=== PATIENT | female | born 1990 | race African-American/Black ===

== ENCOUNTER 2017-10-11 19:29 | Emergency (ER) | payer OTHER ==
[~2017-10-11] VITALS: Ht 167.6 cm; Wt 95.5 kg
[2017-10-11] MEDS ORDERED: DEXAMETHASONE SOD PHOS 4 MG/ML 5 ML VIAL IVP ONE (22:00)
[2017-10-11] MEDS ORDERED: SODIUM CHLORIDE 0.9% 1,000 ML IV ONE (22:00)
[2017-10-11] MEDS ORDERED: VALPROATE SODIUM 500 MG in DEXTROSE 5%-WATER 50 ML IV ONE (22:00)
[2017-10-11] MEDS ORDERED: KETOROLAC TROMETHAMINE 30 MG/ML VIAL IVP ONE (22:00)
[2017-10-11] MEDS ORDERED: ONDANSETRON HCL 4 MG/2 ML VIAL IVP ONE (22:00)
[2017-10-11 22:55] LABS: ANION GAP 10 mmol/L (8-16); CALCIUM, TOTAL 8.6 mg/dL (8.8-10.5); CARBON DIOXIDE 25 mmol/L (22-29); CHLORIDE 104 mmol/L (98-107); CREATININE 0.81 mg/dL (0.60-1.30); GLOMERULAR FILTR. RATE CALC > 60 mL/min (>60); GLUCOSE,RANDOM 101 mg/dL (70-110); POTASSIUM 3.5 mmol/L (3.5-5.1); SODIUM SERUM 139 mmol/L (136-145); UREA NITROGEN, BLOOD 9 mg/dL (7-18)
[2017-10-11 23:01] LABS: ALANINE AMINOTRANSFERASE 17 U/L (12-78); ALBUMIN 3.5 g/dL (3.4-5.0); ALKALINE PHOSPHATASE 49 U/L (46-116); ASPARTATE AMINOTRANSFERASE 14 U/L (15-37); BILIRUBIN,TOTAL 0.3 mg/dL (0.1-1.0); TOTAL PROTEIN, SERUM 6.9 g/dL (6.4-8.2)
[2017-10-11 23:07] LABS: BASOPHILS # (AUTO) 0.04 K/uL (0.00-0.20); BASOPHILS % (AUTO) 0.7 % (0.0-2.0); EOSINOPHILS # (AUTO) 0.08 K/uL (0.00-0.70); EOSINOPHILS % (AUTO) 1.41 % (1.0-6.0); HEMATOCRIT 35.2 % (36-46); HEMOGLOBIN 11.7 g/dL (12.0-16.0); LYMPHOCYTES # (AUTO) 2.1 K/uL (1.0-4.8); LYMPHOCYTES % (AUTO) 39.2 % (22.0-44.0); MEAN CORPUSCULAR HEMOGLOBIN 27.2 pg (26.0-34.0); MEAN CORPUSCULAR HGB CONC 33.2 G/dL (31.0-37.0); MEAN CORPUSCULAR VOLUME 82 fL (80-100); MONOCYTES # (AUTO) 0.4 K/uL (0.1-1.0); MONOCYTES % (AUTO) 7.9 % (2.0-9.0); NEUTROPHILS # (AUTO) 2.7 K/uL (1.8-7.7); NEUTROPHILS % (AUTO) 50.8 % (40.0-70.0); PLATELET COUNT (AUTO) 196 K/uL (150-450); RED CELL DISTRIBUTION WIDTH 14.4 % (11.5-14.5)
[2017-10-11] MEDS ORDERED: HYDROmorphone 2 MG/ML SYRINGE IVP ONE (23:15)
[2017-10-11 23:55] VITALS: BP 110/61
== END 2017-10-12 00:19 | disposition home or self-care (01) ==
LOC: EMS 19:30
DX: G43.009 Migraine without aura, not intractable, without status migrainosus (principal); G44.209 Tension-type headache, unspecified, not intractable; Z88.0 Allergy status to penicillin
CPT/HCPCS: 36415; 70450; 80053; 84703; 85025; 96365; 96375; 99285; J1100; J1170; J1885; J2405; J3490; J7030; J7060

== ENCOUNTER 2018-01-02 17:39 | Emergency (ER) | payer OTHER ==
[~2018-01-02] VITALS: Ht 167.6 cm; Wt 100.0 kg
[2018-01-02] MEDS ORDERED: PAIN PILL PO (17:43)
[2018-01-02] MEDS ORDERED: BENZOCAINE/MENTHOL LOZENGE [8 LOZENGES/PACKET] PO ONE (19:15)
[2018-01-02] MEDS ORDERED: DEXAMETHASONE SOD PHOS 4 MG/ML 5 ML VIAL IM ONE (19:15)
[2018-01-02] MEDS ORDERED: IBUPROFEN 800 MG TABLET PO ONE (19:15)
[2018-01-02 20:09] VITALS: BP 126/79
== END 2018-01-02 20:25 | disposition home or self-care (01) ==
LOC: EMS 17:39
DX: J02.9 Acute pharyngitis, unspecified (principal); J03.90 Acute tonsillitis, unspecified; H69.81 Other specified disorders of Eustachian tube, right ear; F17.210 Nicotine dependence, cigarettes, uncomplicated; Z88.0 Allergy status to penicillin
CPT/HCPCS: 96372; 99283; 99406; J1100

== ENCOUNTER 2019-10-21 07:40 | Emergency (ER) | payer OTHER ==
[~2019-10-21] VITALS: Ht 172.7 cm; Wt 90.9 kg
[~2019-10-21 07:40] MED LIST: PAIN PILL PO
[2019-10-21] MEDS ORDERED: ONDANSETRON HCL 4 MG/2 ML VIAL IVP ONE (08:45)
[2019-10-21] MEDS ORDERED: SODIUM CHLORIDE 0.9% 1,000 ML IV ONE (08:45)
[2019-10-21 09:10] LABS: HEMATOCRIT 40.9 % (36-46); HEMOGLOBIN 13.5 g/dL (12.0-16.0); MEAN CORPUSCULAR HEMOGLOBIN 26.8 pg (26.0-34.0); MEAN CORPUSCULAR VOLUME 81 fL (80-100); PLATELET COUNT (AUTO) 159 K/uL (150-450); RED BLOOD CELL COUNT(AUTO) 5.03 MIL/uL (4.00-5.20); RED CELL DISTRIBUTION WIDTH 14.7 % (11.5-14.5)
[2019-10-21 09:32] LABS: ALANINE AMINOTRANSFERASE 16 U/L (12-78); ALBUMIN 3.4 g/dL (3.4-5.0); ALKALINE PHOSPHATASE 52 U/L (46-116); ANION GAP 8 mmol/L (8-16); ASPARTATE AMINOTRANSFERASE 15 U/L (15-37); BILIRUBIN,TOTAL 0.4 mg/dL (0.1-1.0); CALCIUM, TOTAL 8.7 mg/dL (8.8-10.5); CARBON DIOXIDE 27 mmol/L (22-29); CHLORIDE 105 mmol/L (98-107); CREATININE 0.82 mg/dL (0.60-1.30); GLOMERULAR FILTR. RATE CALC > 60 mL/min (>60); GLUCOSE,RANDOM 91 mg/dL (70-110); HCG,QUANTITATIVE 1 mIU/mL (0-6); LIPASE 65 U/L (73-393); SODIUM SERUM 140 mmol/L (136-145); TOTAL PROTEIN, SERUM 6.9 g/dL (6.4-8.2)
[2019-10-21 09:39] LABS: BAND NEUTROPHILS % (MANUAL) 1 % (0-5); LYMPHOCYTES % (MANUAL) 23 % (22-44); MONOCYTES % (MANUAL) 15 % (2-9); REACTIVE LYMPHOCYTES 4 % (0-0); SEGMENTED NEUTROPHILS % 57 % (40-70); UREA NITROGEN, BLOOD 7 mg/dL (7-18)
[2019-10-21 10:31] VITALS: BP 132/83
== END 2019-10-21 10:36 | disposition home or self-care (01) ==
LOC: EMS 07:43
DX: R19.7 Diarrhea, unspecified (principal); R11.2 Nausea with vomiting, unspecified; F17.210 Nicotine dependence, cigarettes, uncomplicated
CPT/HCPCS: 36415; 80053; 83690; 84702; 85025; 96374; 99283; J2405; J7030

== ENCOUNTER 2021-02-10 09:37 | Emergency (ER) | payer OTHER ==
[~2021-02-10] VITALS: Ht 167.6 cm; Wt 90.9 kg
[2021-02-10 10:26] VITALS: BP 105/54
== END 2021-02-10 10:45 | disposition home or self-care (01) ==
LOC: EMS 09:48
DX: H93.11 Tinnitus, right ear (principal); F17.210 Nicotine dependence, cigarettes, uncomplicated; Z88.0 Allergy status to penicillin
CPT/HCPCS: 99281; Z7502